=== PATIENT | male | born 1955 | race Caucasian/White ===

== ENCOUNTER → 2020-05-09 10:13 | Outpatient (BNVA) | payer MEDICARE, SELFPAY | PROVIDERS: Family Provider Nurse Practitioner; Referring Provider Nurse Practitioner Family; Visit Provider Podiatrist Foot & Ankle Surgery | DX: M79.671 Pain in right foot (principal); M79.89 Other specified soft tissue disorders; M77.8 Other enthesopathies, not elsewhere classified | CPT/HCPCS: 73630 ==

== ENCOUNTER → 2021-01-31 13:36 | Outpatient (BNVA) | payer MEDICARE, SELFPAY | PROVIDERS: Family Provider Nurse Practitioner; Visit Provider Nurse Practitioner Family | DX: R35.0 Frequency of micturition (principal); Z12.5 Encounter for screening for malignant neoplasm of prostate | CPT/HCPCS: 80053; 81000; 85025; G0103 ==

== ENCOUNTER → 2022-04-02 08:59 | Outpatient (BNVA) | payer MEDICARE, SELFPAY | PROVIDERS: Family Provider Nurse Practitioner; Visit Provider Nurse Practitioner Family | DX: R10.9 Unspecified abdominal pain (principal) | CPT/HCPCS: 81000 ==

== ENCOUNTER → 2023-07-24 08:23 | Outpatient (BNVA) | payer MEDICARE, SELFPAY | PROVIDERS: Family Provider Nurse Practitioner; PCP Nurse Practitioner Family; Visit Provider Nurse Practitioner Family | DX: Z13.6 Encounter for screening for cardiovascular disorders (principal) | CPT/HCPCS: 80053; 80061; 85025 ==

== ENCOUNTER → 2024-04-08 08:00 | Outpatient (BNVA) | payer MEDICARE, SELFPAY | PROVIDERS: Family Provider Nurse Practitioner; PCP Nurse Practitioner Family; Visit Provider Nurse Practitioner Family | DX: E78.00 Pure hypercholesterolemia, unspecified (principal); R35.1 Nocturia | CPT/HCPCS: 80053; 80061 ==

== ENCOUNTER 2024-05-13 06:00 | Outpatient (RCR) | payer MEDICARE, SELFPAY | END 2024-05-15 23:59 | disposition home or self-care (01) | LOC: GPT 06:00 | PROVIDERS: Visit Provider Orthopaedic Surgery | DX: S46.0 Injury of muscle(s) and tendon(s) of the rotator cuff of shoulder (principal); X58.XXXD Exposure to other specified factors, subsequent encounter | CPT/HCPCS: 97161 ==

== ENCOUNTER 2024-05-16 06:30 | Outpatient (RCR) | payer MEDICARE, SELFPAY | END 2024-06-15 23:59 | disposition home or self-care (01) | LOC: GPT 06:30 | PROVIDERS: Visit Provider Orthopaedic Surgery | DX: S46.0 Injury of muscle(s) and tendon(s) of the rotator cuff of shoulder (principal); X58.XXXD Exposure to other specified factors, subsequent encounter | CPT/HCPCS: 97110; 97112; 97140 ==

== ENCOUNTER 2024-06-16 05:00 | Outpatient (RCR) | payer MEDICARE, SELFPAY | END 2024-07-15 23:59 | disposition home or self-care (01) | LOC: GPT 05:00 | PROVIDERS: Visit Provider Orthopaedic Surgery | DX: S46.0 Injury of muscle(s) and tendon(s) of the rotator cuff of shoulder (principal); X58.XXXD Exposure to other specified factors, subsequent encounter | CPT/HCPCS: 97110; 97112; 97140 ==

== ENCOUNTER 2024-07-16 06:30 | Outpatient (RCR) | payer MEDICARE, SELFPAY | END 2024-07-20 10:21 | disposition home or self-care (01) | LOC: GPT 06:30 | PROVIDERS: Visit Provider Orthopaedic Surgery | DX: S46.0 Injury of muscle(s) and tendon(s) of the rotator cuff of shoulder (principal); X58.XXXD Exposure to other specified factors, subsequent encounter | CPT/HCPCS: 97110; 97535 ==

== ENCOUNTER → 2024-09-28 09:19 | Outpatient (BNVA) | payer MEDICARE, SELFPAY | PROVIDERS: PCP Nurse Practitioner Family; Visit Provider Nurse Practitioner Family | DX: Z13.6 Encounter for screening for cardiovascular disorders (principal); E78.00 Pure hypercholesterolemia, unspecified | CPT/HCPCS: 80053; 80061; G0103 ==